=== PATIENT | male | born 1985 | race Caucasian/White ===

== ENCOUNTER 2022-11-02 12:05 | Emergency (ER) | payer BC ==
[2022-11-02 15:27] LABS: ALT (SGPT) 19 U/L (8-55); AST (SGOT) 17 U/L (5-34); Albumin 4.9 g/dL (3.5-5.0); Alkaline Phosphatase 76 U/L (40-110); Anion Gap 14 mmol/L (10-20); BUN (Urea Nitrogen) 13 mg/dL (8.9-20.6); Bilirubin, Total 1.2 mg/dL (0.2-1.2); Calc. Creatinine Clearance 0 mL/min (70-130); Calcium 9.6 mg/dL (7.8-10.44); Carbon Dioxide 23 mmol/L (22-29); Chloride 104 mmol/L (98-107); Estimated GFR 89; Globulin 2.5 g/dL (2.4-3.5); Glucose 104 mg/dL (70-105); Potassium 4.3 mmol/L (3.5-5.1); Protein, Total 7.4 g/dL (6.0-8.3); Sodium 137 mmol/L (136-145)
[2022-11-02 15:33] LABS: Troponin I Less than 0.010 ng/mL (< 0.028)
[2022-11-02 15:37] LABS: #Monocytes 0.4 10x3/uL (0.0-1.1); #Neutrophils 6.1 10x3/uL (1.5-8.4); %Basophils 0.4 % (0.0-2.0); %Eosinophils 0.3 % (0.0-6.0); %Lymphocytes 15.4 % (18.0-47.0); %Neutrophils 78.8 % (40.0-75.0); Hematocrit 41.8 % (38.8-50.0); Hemoglobin 14.3 g/dL (13.5-17.5); Mean Corpuscular HGB CONC 34.2 g/dL (32.0-36.0); Mean Corpuscular Hemoglobin 29.4 pg (27.0-33.0); Mean Corpuscular Volume 85.8 fl (81.2-95.1); Mean Platelet Volume 9.9 fl (7.4-10.4); Platelet Count 254 10x3/uL (150-450); RBC Distribution Width 11.7 % (11.5-14.5); Red Blood Cell (RBC) Count 4.87 10x6/uL (4.32-5.72); White Blood Cell (WBC) Count 7.8 10x3/uL (3.5-10.5)
[2022-11-02 17:15] LABS: Bilirubin Neg (Negative); Blood, Urine Negative (Negative); Clarity Clear (Clear); Glucose, Urine (Dipstick) Normal (Negative); Ketone, Urine Negative (Negative); Leukocyte Negative (Negative); Nitrite Negative (Negative); Protein, Urine (Dipstick) Negative (Neg-Trace); Urobilinogen Normal mg/dL (Less than 2)
[2022-11-02] MEDS ORDERED: Ketorolac Tromethamine 30 MG/ML VIAL ONE (17:40)
[2022-11-02 17:51] LABS: CAUTI Indications for Culture Pelvic or flank pain; RBC/HPF None Seen HPF (0-3); WBC/HPF 0-3 HPF (0-3)
[2022-11-02 17:52] LABS: Squamous Epithelial None Seen HPF (0-3)
[2022-11-02 17:53] LABS: Bacteria/HPF Rare-Few HPF (None Seen)
[2022-11-02 17:54] LABS: Urine Culture Reflex No No
== END 2022-11-02 17:52 | disposition home or self-care (01) ==
LOC: CSHERS 12:05
DX: R07.89 Other chest pain (principal); R10.30 Lower abdominal pain, unspecified; R20.2 Paresthesia of skin
CPT/HCPCS: 36415; 71045; 76870; 80053; 81001; 84484; 85025; 93005; 93976; 96372; J1885

== ENCOUNTER 2022-11-10 09:01 | Outpatient (CLI) | payer BC | END 2022-11-10 09:02 | disposition home or self-care (01) | LOC: CSHCT 09:01 | PROVIDERS: ATTEND Family Medicine | DX: R20.2 Paresthesia of skin (principal); R41.89 Other symptoms and signs involving cognitive functions and awareness; R53.1 Weakness | CPT/HCPCS: 70450 ==

== ENCOUNTER 2022-11-14 19:32 | Emergency (ER) | payer BC ==
[2022-11-14 20:01] LABS: #Eosinphils 0.2 10x3/uL (0.0-0.5); #Monocytes 0.7 10x3/uL (0.0-1.1); #Neutrophils 3.7 10x3/uL (1.5-8.4); %Basophils 0.5 % (0.0-2.0); %Lymphocytes 40.4 % (18.0-47.0); %Monocytes 9.4 % (0.0-10.0); %Neutrophils 46.4 % (40.0-75.0); Hematocrit 41.4 % (38.8-50.0); Hemoglobin 14.2 g/dL (13.5-17.5); Mean Corpuscular HGB CONC 34.3 g/dL (32.0-36.0); Mean Corpuscular Hemoglobin 29.4 pg (27.0-33.0); Mean Corpuscular Volume 85.7 fl (81.2-95.1); Mean Platelet Volume 9.8 fl (7.4-10.4); Platelet Count 271 10x3/uL (150-450); RBC Distribution Width 11.9 % (11.5-14.5); Red Blood Cell (RBC) Count 4.83 10x6/uL (4.32-5.72); White Blood Cell (WBC) Count 7.9 10x3/uL (3.5-10.5)
[2022-11-14 20:15] LABS: ALT (SGPT) 23 U/L (8-55); AST (SGOT) 22 U/L (5-34); Albumin 4.8 g/dL (3.5-5.0); Alkaline Phosphatase 82 U/L (40-110); Anion Gap 15 mmol/L (10-20); BUN (Urea Nitrogen) 22 mg/dL (8.9-20.6); Bilirubin, Total 0.7 mg/dL (0.2-1.2); Calc. Creatinine Clearance 0 mL/min (70-130); Calcium 9.6 mg/dL (7.8-10.44); Carbon Dioxide 25 mmol/L (22-29); Chloride 101 mmol/L (98-107); Estimated GFR 77; Globulin 2.9 g/dL (2.4-3.5); Glucose 158 mg/dL (70-105); Protein, Total 7.7 g/dL (6.0-8.3); Sodium 137 mmol/L (136-145)
[2022-11-14 20:19] LABS: Troponin I Less than 0.010 ng/mL (< 0.028)
== END 2022-11-14 22:32 | disposition home or self-care (01) ==
LOC: CSHERS 19:32
DX: R00.0 Tachycardia, unspecified (principal); R00.2 Palpitations; G43.909 Migraine, unspecified, not intractable, without status migrainosus; F17.210 Nicotine dependence, cigarettes, uncomplicated
CPT/HCPCS: 71045; 80053; 84484; 85025; 93005

== ENCOUNTER 2023-05-18 13:36 | Outpatient (CLI) | payer BC, OTHER, SELFPAY | END 2023-05-18 13:37 | disposition home or self-care (01) | LOC: CSHMRI 13:36 | PROVIDERS: ATTEND Psychiatry & Neurology Neurology | DX: M54.16 Radiculopathy, lumbar region (principal) | CPT/HCPCS: 72148 ==

== ENCOUNTER 2023-07-16 13:15 | Outpatient (CLI) | payer BC ==
[~2023-07-16 13:15] MED LIST: Magnevist 469MG/ML 20 ML VIAL ONE
== END 2023-07-16 13:16 | disposition home or self-care (01) ==
LOC: CSHMRI 13:15
PROVIDERS: ATTEND Psychiatry & Neurology Neurology
DX: G37.9 Demyelinating disease of central nervous system, unspecified (principal); G35 Multiple sclerosis; R53.1 Weakness; R20.0 Anesthesia of skin
CPT/HCPCS: 70553; 72156; A9579

== ENCOUNTER 2024-04-11 07:38 | Outpatient (CLI) | payer BC ==
[2024-04-11] MEDS ORDERED: Iopamidol 300 61% 100 ML VIAL FS ONE (12:49)
== END 2024-04-11 07:39 | disposition home or self-care (01) ==
LOC: CSHCT 07:38
PROVIDERS: ATTEND Family Medicine
DX: M54.2 Cervicalgia (principal)
CPT/HCPCS: 70492; Q9967

== ENCOUNTER 2025-02-06 15:00 | Outpatient (CLI) | payer BC ==
[~2025-02-06 15:00] MED LIST changes: +Iopamidol 370 76% 100 ML VIAL ONE; -Magnevist 469MG/ML 20 ML VIAL ONE
== END 2025-02-06 15:01 | disposition home or self-care (01) ==
LOC: CSHCT 15:00
PROVIDERS: ATTEND Family Medicine
DX: R10.30 Lower abdominal pain, unspecified (principal); R91.1 Solitary pulmonary nodule
CPT/HCPCS: 74178; Q9967